=== PATIENT | male | born 1940 | race Caucasian/White ===

== ENCOUNTER 2024-11-17 00:44 | Emergency (ER) | payer MEDICARE, SELFPAY ==
[2024-11-17 00:46] VITALS: BP 154/75; PULSE 93; RESP 17; TEMP 36.8; O2SAT 94; BMI 29.3
--- NOTE | 2024-11-17 01:18 | CT_ITS ---
PROCEDURE: BRAIN/HEAD WITHOUT CONTRAST 11/17/2024 REASON FOR EXAM: SEIZURE TECHNIQUE: Head CT without intravenous contrast. Coronal and Sagittal reconstruction series were provided. One or more dose reduction techniques were used (e.g., Automated exposure control, adjustment of the mA and/or kV according to patient size, use of iterative reconstruction technique. RADIATION DOSE SUMMARY: CTDlvol: 44.99 mGy DLP: 779.24 mGycm COMPARISON: None available FINDINGS: Beam hardening spray artifact associated with bilateral cochlear implants limits the evaluation. No definite intracranial hemorrhage or mass effect identified. The ventricles appear within limits and midline. CSF spaces appear within limits. Bilateral mastoidectomies with defect on the left mostly opacified with soft tissue and left middle ear opacification suggested. There is also asymmetric overlying left scalp soft tissue swelling/thickening, clinically correlate. Fluid opacification right mastoid tip with sclerosis. The visualized paranasal sinuses and orbits appear within limits. Old appearing nasal fracture deformity. Rightward bowing of the nasal septum. CT/Brain/Head without Contrast IMPRESSION: Beam hardening spray artifact associated with bilateral cochlear implants limit s the evaluation. No definite intracranial hemorrhage or mass effect identified. Bilateral mastoidectomies with defect on the left mostly opacified with soft ti ssue and left middle ear opacification suggested. There is also asymmetric overlying left scalp soft tissue swelling/thickening, clinically correlate. Reading Location: [id number]
[2024-11-17 01:33] LABS: Absolute Lymphocyte Count 1.05 X10^3/uL (0.83-4.51); Absolute Neutrophil Count 5.4 X10^3/uL (2.0-7.7); Basophil# 0.05 X10^3/uL; Basophil% 0.7 % (0-1); Eosinophil# 0.42 X10^3/uL; Eosinophils% 5.5 % (0-5); Hematocrit 38.5 % (40-54); Lymphocyte # 1.05 X10^3/ul (0.83-4.51); Lymphocyte % 13.7 % (19-41); Mean Corp Hgb Conc 33.8 g/dL (32-36); Mean Corpuscular Hgb 31.1 pg (27.0-32.0); Mean Corpuscular Volume 92.1 fL (80-94); Mean Platelet Vol. 10.4 fl (6.2-12.0); Monocyte% 9.1 % (0-10); NRBC Flagged by Analyzer 0 % (0-5); Neutrophil # 5.43 X10^3/uL (2.7-7.7); Neutrophil % 70.9 % (47-70); Platelet Count 168 K/mm3 (150-450); RBC Distribution Width CV 13.8 % (11.6-14.6); RBC Distribution Width SD 46.7 fl (35.1-43.9); Red Blood Count 4.18 M/mm3 (4.6-6.2); White Blood Count 7.7 K/mm3 (4.4-11.0)
--- NOTE | 2024-11-17 01:40 | RAD_ITS ---
PROCEDURE: CHEST 1 VIEW (PORTABLE) 11/17/2024 REASON FOR EXAM: SEIZURE TECHNIQUE: Frontal view of the chest. COMPARISON: None available FINDINGS: The lungs appear clear. Suggestion of possible mild upper zone emphysematous change. The cardiac and mediastinal contours appear within limits. Mild rightward curvature thoracic spine. Bilateral likely large chronic rotator cuff tears and osteoarthrosis of the shoulders. RAD/Chest 1 View (Portable) IMPRESSION: No evidence of acute disease. Reading Location: [id number]
[2024-11-17 01:59] LABS: Lactic Acid 1.6 mmol/L (0.0-2.0)
[2024-11-17 02:01] LABS: Anion Gap 12 (5-15); BUN 26 mg/dL (4-19); BUN/Creat Ratio 25.3 RATIO (10-20); Calcium,Total 9.1 mg/dL (7.6-11.0); Carbon Dioxide 23.2 mmol/L (21.0-32.0); Chloride 103 mmol/L (98-108); Creatinine, Serum 1.02 mg/dL (0.70-1.20); EST Glomerular Filtration Rate 72 (>60); Estimated Creatinine Clearance 55.16 ml/min (50-250); Glucose 116 mg/dL (70-99); Potassium 3.9 mmol/L (3.3-5.1); Sodium Level 138 mmol/L (133-145)
[2024-11-17 02:01] LABS: Bacteria 0 SEEN /hpf (None Seen); Mucous, Urine 0 SEEN /hpf (<or=2+); Red Blood Cells-Urine 0 SEEN /hpf (0-5); Squamous Epithelial Cells - UA 0 SEEN /hpf (0-5)
[2024-11-17 02:02] LABS: Color, Urine Amber (Yellow); Glucose, Dipstick Normal (Normal); Ketone-Dipstick Negative (Negative); Leukocyte Esterase-Dipstick 25 /ul (Negative); Nitrite-Dipstick Negative (Negative); Occult Blood-Urine 10 /ul (Negative); Protein-Dipstick 100 mg/dl (Negative); Urine Bilirubin Dipstick Negative (Negative); Urine Clarity Cloudy (Clear); Urine Urobilinogen 1 mg/dl (Normal)
[2024-11-17 02:37] LABS: White Blood Cells 0-5 SEEN /hpf (0-5)
[2024-11-17 02:45] VITALS: BP 157/73; PULSE 81; RESP 16; TEMP 36.6; O2SAT 97
--- NOTE | 2024-11-17 02:45 | EX.ED.DYSGE1 ---
HPI History of Present Illness Chief Complaint: Seizure Informant: patient, spouse/S.O. and family Narrative Narrative: Patient is an 84-year-old male with past medical history of hypertension and hyperlipidemia. He underwent surgery roughly 5 days ago for implantation of a left cochlear implant. Family reports that this was uneventful and he was discharged home without any issues. They report that he had his right cochlear implant done roughly 1 year ago and tolerated that well without any type of side effect. I do report that they had him hold his aspirin and Plavix prior to the surgery but he has restarted those. They also state that they placed him on Duricef for infection prophylaxis and this is the only new medication he is on. They state that there is no history of alcohol abuse or benzodiazepine abuse. According to the the patient had gone to bed before her and was sleeping and she walked into go to bed and after laying down all of a sudden felt him shaking uncontrollably. She states that she turned the light on and tried to wake him up but he would not respond. She states she believes that he was having this altered mental status/convulsion for anywhere between 1 and 5 minutes. Family states that he appeared postictal when they arrived. He has no history of seizure activity and with event presenting as potential seizure and EMS was called and he was brought in for evaluation. Upon arrival to the ER the patient is awake and alert and oriented. He states he feels normal. He does not remember any of the reported events [facility]SH [facility] Home Medications ?Medication ?Instructions ?Recorded ?Last Taken ?Type atorvastatin 40 mg tablet 40 mg PO QHS 08/04/16 08/03/16 20:00 History clopidogrel 75 mg tablet 75 mg PO DAILY 08/04/16 08/04/16 07:00 History guaifenesin 600 mg tablet, 600 mg PO Q12H 08/04/16 08/04/16 07:00 History extended release 12 hr (Mucinex) lisinopril 5 mg tablet 5 mg PO DAILY 08/04/16 08/04/16 07:00 History multivitamin (Daily Multiple 1 ea PO DAILY 08/04/16 08/04/16 08:00 History tablet) diclofenac sodium 1 % topical gel 1 applic TP BID #1 tube 08/05/16 Unknown Rx (Voltaren) oxycodone-acetaminophen 5 mg-325 1 tab PO Q6H PRN PRN Pain ##15 12/22/16 Unknown Rx mg tablet pantoprazole 40 mg tablet,delayed 40 mg PO DAILY 08/05/16 Unknown History release Allergy/AdvReac Type Severity Reaction Status Date / Time Penicillins Allergy Rash Verified 11/17/24 00:46 Surgical History History of cochlear implant Surgical History no surgical history Social History Smoking Status: Former smoker ROS ROS ED Constitutional Constitutional ED: Denies chills or fever(s) Eyes Eyes: Denies blurry vision or change in vision ENT ENT ED: Denies rhinorrhea or sore throat Cardiovascular Cardiovascular: Denies chest pain or palpitations Respiratory/Chest Respiratory/Chest: Denies cough or dyspnea Gastrointestinal Gastrointestinal: Denies abdominal pain, diarrhea, nausea or vomiting Genitourinary Genitourinary ED: Denies dysuria Musculoskeletal Musculoskeletal: Denies myalgias or neck pain Integumentary Reports other Details: Positive postoperative wound along the left skull/scalp ; Denies rash Neurologic Neurologic: Reports other Details: Positive seizure-like activity ; Denies headache(s) Hematologic/Lymphatic Hematologic/Lymphatic: Reports easy bleeding and easy bruising EXAM Physical Exam Const Vital Signs: 11/17/24 00:46 11/17/24 02:45 11/17/24 02:45 Temperature 98.3 F 97.9 F Temperature Source Oral Pulse Rate 93 81 81 Respiratory Rate 17 16 16 Blood Pressure 154/75 H 157/73 H 157/73 H Blood Pressure Mean 101 101 101 Pulse Ox 94 97 97 Oxygen Delivery Method Room Air Positive well nourished and well developed General Appearance ED: well developed HEENT HEENT Narrative: Patient has postoperative changes over top the mastoid aspect of the left ear consistent with recent cochlear implant. There is no surrounding soft tissue changes to suggest infection No tongue or cheek biting is noted; however the patient wears dentures and did not have his teeth and during the reported seizure-like activity No secondary findings in the posterior pharynx to suggest infection. Eyes PERRL and EOMs intact bilaterally General Eye ED: Yes scleral icterus Neck supple Neck Narrative: No nuchal rigidity or meningeal signs Chest Wall palpation of chest normal Resp normal respiratory effort and clear to auscultation bilaterally Cardio regular rate and regular rhythm Rate: other Other Details: Heart is regular rate and rhythm Radial and carotid pulses are equal and symmetric GI normal to inspection, nondistended, normoactive bowel sounds, non-tender, non-distended and no masses GI Narrative: No voluntary guarding or rigidity or pulsatile mass Auscultation: normoactive bowel sounds Palpation: soft Extremity normal to inspection Neuro oriented x3, CN's II-XII intact bilaterally and no sensory deficits noted Neuro Narrative: GCS of 15 Cranial nerves II through XII are grossly intact without focal neurologic deficit No pronator drift no dysmetria no truncal ataxia NIH stroke scale score of 0 Sensorium / Orientation: alert Motor Exam: strength 5/5 throughout Psych mental status grossly normal Skin Skin Narrative: Postoperative changes along the left mastoid without secondary infection as documented above MDM MDM MDM Narrative Medical decision making narrative: Family reported a generalized tonic-clonic seizure-like activity with postictal phase. Upon arrival to the ER the patient is awake alert and oriented. Patient and family deny any history of alcohol or benzodiazepine abuse with withdrawal that could have precipitated his seizure-like activity. They also state that other than the antibiotic there is no new medication which could potentially cause a seizure. Therefore at this time as patient could have electrolyte abnormalities such as hyponatremia or secondary infection such as UTI basic blood work and a urine sample will be obtained. There is also concern for spontaneous brain bleed or mass leading to seizure-like activity and therefore head CT will be ordered. The patient's head CT revealed postoperative changes without acute bleed mass or obvious signs of infection. Laboratory studies showed no signs of acute kidney injury acute blood loss anemia or clinically significant electrolyte abnormality. The patient returned to his baseline mental status prior to arrival at the ER and is not any further seizure activity. Therefore with a one-time seizure-like event with overall negative workup and no return to seizure activity or change in mental status there is no need for further workup in the ER and this can be done as an outpatient and therefore he will be discharged home History & Record Review Discussion w/independent historian: Patient, Family and Significant other Lab Data Attestation: I reviewed the patient's lab results. Labs: Laboratory Results - last 24 hr 11/17/24 11/17/24 01:25 01:53 WBC 7.7 RBC 4.18 L Hgb 13.0 Hct 38.5 L MCV 92.1 MCH 31.1 MCHC 33.8 RDW Std Deviation 46.7 H RDW Coeff of Madelin 13.8 Plt Count 168 MPV 10.4 Immature Gran % (Auto) 0.100 Neut % (Auto) 70.9 H Lymph % (Auto) 13.7 L [place] % (Auto) 9.1 Eos % (Auto) 5.5 H Baso % (Auto) 0.7 Absolute Neuts (auto) 5.4 Absolute Lymphs (auto) 1.05 Nucleated RBC % 0 Sodium 138 Potassium 3.9 Chloride 103 Carbon Dioxide 23.2 Anion Gap 12 BUN 26 H Creatinine 1.02 Estim Creat Clear Calc 55.16 Est GFR (MDRD) Non-Af 72 BUN/Creatinine Ratio 25.3 H Glucose 116 H Lactic Acid 1.6 Calcium 9.1 Magnesium 2.0 Urine Color Guerline Urine Clarity Cloudy Urine pH 6.0 Ur Specific [place] 1.020 Urine Protein 100 H Urine Glucose (UA) Normal Urine Ketones Negative Urine Occult Blood 10 H Urine Nitrite Negative Urine Bilirubin Negative Urine Urobilinogen 1 H Ur Leukocyte Esterase 25 H Urine RBC 0 SEEN Urine WBC 0-5 SEEN Ur Squamous Epith Cells 0 SEEN Other Crystals SEE COMMENT Urine Bacteria 0 SEEN Urine Mucus 0 SEEN Radiography Diagnostic Testing: Clinical Impression(s) from Imaging Studies Brain CT 11/17/24 01:18 IMPRESSION: Beam hardening spray artifact associated with bilateral cochlear implants limits the evaluation. No definite intracranial hemorrhage or mass effect identified. Bilateral mastoidectomies with defect on the left mostly opacified with soft tissue and left middle ear opacification suggested. There is also asymmetric overlying left scalp soft tissue swelling/thickening, clinically correlate. Reading Location: [facility] Chest X-Ray 11/17/24 01:40 IMPRESSION: No evidence of acute disease. Reading Location: [facility] Chest x-ray as interpreted by the emergency medicine physician reveals no acute infiltrate pneumothorax or pleural effusion Discharge Plan Triage Chief Complaint: Seizure ED Provider: Arik Palomares Dx/Rx/DC Orders Clinical Impression: Seizure-like activity, Hyperlipidemia, Hypertension, Cochlear implant in place Instructions: ED Seizure New [facility] Adult Prescriptions: No Action multivitamin [Daily Multiple] 1 EACH tablet 1 ea PO DAILY Patient Comments: supplement atorvastatin 40 MG tablet 40 mg PO QHS Patient Comments: cholesterol clopidogrel 75 MG tablet 75 mg PO DAILY Patient Comments: blood thinner lisinopril 5 MG tablet 5 mg PO DAILY Patient Comments: blood pressure guaifenesin [Mucinex] 600 MG tablet extended release 12hr 600 mg PO Q12H Patient Comments: Congestion pantoprazole 40 MG tablet 40 mg PO DAILY oxycodone-acetaminophen 1 TABLET tablet 1 tab PO Q6H PRN PRN (Reason: Pain) Qty: 15 0RF diclofenac sodium [Voltaren] 100 GM gel 1 applic TP BID Qty: 1 0RF Rx Instructions: Continue for 1 week for pain relief Primary Care Provider: Az Shanks Referrals: Az Shanks MD [Primary Care Provider] - Activity Restrictions/Additional Instructions: Your workup today showed no obvious reason for a seizure. Follow-up with your neurologist to discuss further testing secondary to tonight's event. Continue all your home medication as directed by your doctor. Please do not operate heavy machinery or drive until you are cleared by neurology secondary to the seizure event that occurred this evening Print Language: Mongolian Disposition Disposition: Home, Self Care Discharge Date/Time: 11/17/24 02:55
== END 2024-11-17 02:55 | disposition home or self-care (01) ==
PROVIDERS: Emergency Provider Emergency Medicine; PCP Internal Medicine Infectious Disease; Visit Provider Emergency Medicine
DX: R56.9 Unspecified convulsions (principal); E78.5 Hyperlipidemia, unspecified; Z87.891 Personal history of nicotine dependence; I10 Essential (primary) hypertension; Z79.899 Other long term (current) drug therapy; Z96.21 Cochlear implant status
CPT/HCPCS: 70450; 71045; 80048; 81001; 83605; 83735; 85025; 87631; 99285; A4216